=== PATIENT | male | born 1995 | race African-American/Black ===

== ENCOUNTER 2025-07-25 15:37 | Emergency (ER) | payer OTHER, SELFPAY ==
--- NOTE | ~2025-07-25 | XR_ITS ---
EXAMINATION: XR foot LT min 3V, 07/25/2025 16:04 CDT HISTORY: pallet dropped on foot today, left foot pain COMPARISON: No comparisons available. Findings: No acute fracture or malalignment. No significant degenerative changes. Soft tissues unremarkable. Impression: No acute fracture or malalignment. Reviewed, dictated and finalized at location A. Impression: No acute fracture or malalignment.
[2025-07-25 15:54] VITALS: BP 139/84; PULSE 59; RESP 16; TEMP 36.8; O2SAT 100
[2025-07-25] MEDS: IBUPROFEN 600 MG TABLET PO (16:37)
--- NOTE | 2025-07-25 17:10 | ED_ITS ---
HPI - Extremity Injury (Lower) General Chief Complaint: Extremity Injury, Lower Stated Complaint: WC foot/toe smashed Time Seen by Provider: 07/25/25 16:24 Source: patient and RN notes reviewed Mode of arrival: wheelchair Limitations: no limitations History of Present Illness HPI Narrative: Patient presents today complaining of pain to the left foot. Approximately 1430, a Pallet fell on his foot at work. He is complaining of pain at the base of his toes. Denies numbness or tingling. No OTC treatment prior to arrival. He is up-to-date on his tetanus vaccine. Related Data Allergies Allergy/AdvReac Type Severity Reaction Status Date / Time No Known Allergies Allergy Verified 07/25/25 16:25 PMFSH Comments At time of signature, I have reviewed and agree with nursing past medical, surgical, social and family history unless otherwise noted. Please see nursing chart for further information. There is no relevant family history pertinent to the presenting complaint Exam Narrative: GENERAL: Well-appearing, well-nourished, and in no acute distress. HEAD: Normocephalic, atraumatic. EYES: EOMI. No redness or drainage. Conjunctivae normal. ENT: Mucous membranes pink and moist. NECK: Normal AROM. CHEST: No respiratory distress. EXTREMITIES: Left foot: Tenderness to the 1st toe and to the foot at the base of the remaining toes. Very superficial small abrasion to the dorsum of the 1st toe. No swelling, ecchymosis, erythema noted. Distal sensation intact in all 5 toes. Capillary refill normal. Pedal pulse normal. Decreased range of motion of the toes due to pain. SKIN: Warm, dry, no rash. Capillary refill normal. Normal skin turgor. NEURO: No focal deficits. Alert and oriented x3. PSYCH: Normal affect. No signs of depression or anxiety. Course Course Level of Care: Express Care Visit Vital Signs Vital signs: Vital Signs Temperature 98.3 F 07/25/25 15:54 Pulse Rate 59 L 07/25/25 15:54 Respiratory Rate 16 07/25/25 15:54 Blood Pressure 139/84 07/25/25 15:54 Pulse Oximetry 100 07/25/25 15:54 Temperature 98.3 F 07/25/25 15:54 Pulse Rate 59 L 07/25/25 15:54 Respiratory Rate 16 07/25/25 15:54 Blood Pressure 139/84 07/25/25 15:54 Pulse Oximetry 100 07/25/25 15:54 Reviewed MDM - Extremity Injury (Lower) MDM Narrative Medical decision making narrative: 30-year-old male patient presents today with an injury to the left foot. A Pallet at work fell on his foot today. Upon exam, patient has a very superficial abrasion to the dorsum of his 1st toe. Tenderness to the base of all 5 toes. No erythema, ecchymosis, deformity, edema. X-ray negative for fracture. Wound cleansed. Patient placed in postop shoe. Recommend conservative treatment, NSAIDs with PCP or orthopedic follow-up in 7-10 days if symptoms persist. Vital signs stable. Patient agrees with plan. Anticipatory guidance given. Differential Diagnosis Differential diagnosis: Likely fracture of toe and other (Foot fracture, contusion) Imaging Data Radiologist's impression: ITS Impressions Foot X-Ray 07/25/25 16:41 Impression: No acute fracture or malalignment. Critical Care Time Critical Care Time Critical Care Time: No Discharge Plan Discharge Clinical Impression: Contusion of foot, left Qualifiers: Encounter type: initial encounter Qualified Code(s): S90.32XA - Contusion of left foot, initial encounter Patient Disposition: Home Condition: Stable Instructions: Contusion in Adults (ED), P.R.I.C.E. Treatment (ED) Additional Instructions: Your x-ray is negative. Elevate and ice the foot. Take Tylenol or ibuprofen if able. Follow-up with your PCP or orthopedics in 7-10 days if symptoms are not improving. Your blood pressure was elevated above 120/80 today at Urgent Care. This puts you above the threshold for follow up. Please schedule a followup visit with your personal physician as soon as possible, for further evaluation and treatment. Even blood pressure exceeding 120/80 may indicate pre-hypertension. Patient Language: Arabic Follow-up/Referrals: PHYSICIAN,INKING MACHINE TENDER [Primary Care Provider, Internal Medicine] Time of Disposition: 17:14
== END 2025-07-25 17:17 | disposition home or self-care (01) ==
PROVIDERS: Emergency Provider Nurse Practitioner
DX: S90.32XA Contusion of left foot, initial encounter (principal); W20.8XXA Other cause of strike by thrown, projected or falling object, initial encounter; Y99.0 Civilian activity done for income or pay
CPT/HCPCS: 73630; 99203; A9270; G0463